=== PATIENT | male | born 1985 | race Caucasian/White ===

== ENCOUNTER 2020-07-08 08:31 | Outpatient (REF) | payer BC, SELFPAY | END 2020-07-08 08:32 | disposition home or self-care (01) | LOC: HO.LAB 08:31 | PROVIDERS: Visit Provider Internal Medicine | DX: Z20.828 Contact with and (suspected) exposure to other viral communicable diseases (principal) | CPT/HCPCS: C9803; U0003 ==

== ENCOUNTER 2020-09-20 18:11 | Emergency (ER) | payer BC, SELFPAY ==
[2020-09-20 19:29] VITALS: BP 171/106; PULSE 97; RESP 16; TEMP 36; O2SAT 98; BMI 34.2
[2020-09-20 21:01] VITALS: BP 152/87
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
[2020-09-20 22:39] VITALS: BP 149/68; PULSE 97; RESP 16; TEMP 36.6
== END 2020-09-20 23:08 | disposition home or self-care (01) ==
PROVIDERS: Emergency Provider Emergency Medicine
DX: S13.4XXA Sprain of ligaments of cervical spine, initial encounter (principal); M25.512 Pain in left shoulder; M54.2 Cervicalgia; R07.89 Other chest pain; V43.52XA Car driver injured in collision with other type car in traffic accident, initial encounter; Y93.9 Activity, unspecified; Y92.410 Unspecified street and highway as the place of occurrence of the external cause; Y99.9 Unspecified external cause status; Z79.899 Other long term (current) drug therapy
CPT/HCPCS: 71046; 72040; 73030; 99283; 99284

== ENCOUNTER 2024-09-15 06:50 | Day surgery (SDC) | payer BC, SELFPAY ==
[2024-09-15] VITALS (10 sets, daily range): BP systolic 139–209; BP diastolic 69–129; PULSE 64–111; RESP 13–18; TEMP 36.1–36.7; O2SAT 94–98; BMI 40.7
--- NOTE | 2024-09-15 10:31 | ED_ITS ---
HPI - Male Genitourinary General Chief complaint: Urogenital-Male Stated complaint: uro gen male, bleeding from private area, skin rip Time Seen by Provider: 09/15/24 10:31 Source: patient and RN notes reviewed Mode of arrival: ambulatory Limitations: no limitations History of Present Illness ED Provider: Lorna Ulloa PA-C [facility] Narrative: This is a 39-year-old male, with no reported medical problems, who presents to the emergency department who presents emergency department with concerns for foreskin tear. Patient states that he started using a new sex toy with new lubrication, which caused irritation to his foreskin he states that while he was retracting his foreskin this morning for cleansing, he felt his foreskin rip. No hx of similar symptoms. Radiation: penis Relieving factors: none Exacerbating factors: none Associated symptoms: Reports denies other symptoms Related Data Sexually active: No Previous Rx's ?Medication ?Instructions ?Recorded cyclobenzaprine 10 mg tablet 10 mg PO TID PRN muscle spasm #14 09/20/20 tabs ibuprofen 600 mg tablet 600 mg PO TID PRN pain #30 tabs 09/20/20 metformin 500 mg tablet 500 mg PO DAILY 30 days #30 tabs 09/15/24 oxycodone 5 mg tablet 5 mg PO Q8H PRN pain 3 days #8 tabs 09/15/24 sulfamethoxazole 400 1 tab PO DAILY #10 tabs 09/15/24 mg-trimethoprim 80 mg tablet (Bactrim) Allergies Allergy/AdvReac Type Severity Reaction Status Date / Time No Known Allergies Allergy Verified 09/15/24 06:54 Review of Systems 2 Review of Systems: Yes all other systems are reviewed and are negative Constitutional: Constitutional: Reports as per [facility] Social History Social History Smoked in Last 30 Days: No Use of substances other than those prescribed or required for medical reasons: No Advance Directives: No Advance Directives Information Provided: Yes Do you have a plan to hurt others: No Plan Physical Exam 2 Vital Signs: Vital Signs: Last Vital Signs Temp 97.5 F 09/15/24 20:32 Pulse 77 09/15/24 20:43 Resp 16 09/15/24 20:43 BP 139/79 09/15/24 20:43 Pulse Ox 94 09/15/24 20:43 O2 Del Method Room Air 09/15/24 20:43 O2 Flow Rate 3 09/15/24 20:22 BMI result Body Mass Index 40.7 Const: General: cooperative, comfortable and no acute distress O rientation/consciousness: patient oriented x3 Limitations: no limitations HEENT: Head: Yes normal to inspection, Yes normocephalic and Yes atraumatic Ears: hearing grossly normal bilaterally General nose exam: Normal external nose present Face and sinus: Yes normal facial exam Mouth: Normal oral and palatal mucosa present, oropharynx normal and moist mucous membranes Throat: Yes posterior oropharynx normal Eyes: General: appearance normal, both eyes and all related structures E yelids: Yes eyelids normal Conjunctivae: conjunctivae normal Sclerae: s clerae normal Pupils: Equal, round and reactive pupils present EOM: EOMs intact bilaterally Neck: Neck: Yes normal visual inspection, Yes full ROM and Yes no lymphadenopathy Lymphatic: no lymphadenopathy noted Chest: Chest palpation & inspection: normal inspection of the chest Resp: Effort & Inspection: normal respiratory effort and able to speak in complete sentences Auscultation: clear to auscultation bilaterally, no crackles, no rales, no rhonchi and no wheezes Cardio: Rate: regular rate Rhythm: regular rhythm Heart sounds: S1 normal heart sound present and S2 normal heart sound present GI: Inspection: Yes normal to inspection : Other: Uncircumcised male, with a large approximately 2.5 cm laceration noted to foreskin, left laterodorsal aspect extending just inferior to the glans. Controlled bleeding. Skin: General skin exam: no rashes or lesions noted Trauma: no lacerations or abrasions Wounds: no wounds Neuro: General: patient oriented x3 and moves all extremities Cranial nerves: Yes Equal, round and reactive pupils present Extrem: General: Yes normal to inspection Right upper extremity: normal to inspection Left upper extremity: normal to inspection Right lower extremity: normal to inspection Left lower extremity: normal to inspection Course Reevaluation(s) Reevaluation #1: Dr. Fenton saw patient at bedside. Recommending circumcision, will add to surgical schedule for this afternoon. Will obtain basic labs, will medicate with 1 time dose of Rocephin. Time: 13:16 Reevaluation #2: Pt's labs reveal patient has elevated glucose at 260. He mentions that he was seen at an urgent care 2 days ago and was told that he likely has diabetes. No known hx. Pt will start on metformin 500mg QD. Discussed to f/u with endocrinology. He understands. awaiting OR for emergent circumsision. Time: 14:28 Medications Administered Discontinued Medications Generic Name Dose Route Start Last Admin Trade Name Mindy PRN Reason Stop Dose Admin Ceftriaxone Sodium 2 gm 09/15/24 13:10 09/15/24 13:41 Ceftriaxone Sodium 2 Gm Vial IVPUSH 09/15/24 13:11 2 gm ONCE ONE Administration Lactated Ringer's 1,000 mls @ 100 mls/hr 09/15/24 13:15 09/15/24 13:41 Lr IVCONT 100 mls/hr .Q10H FARIHA Administration Medical Decision Making Medical Decision Making [facility] Narrative: This is a 39-year-old male who presents emergency department with concerns for torn foreskin. On arrival, blood pressure 200/105, pulse 111. Patient reports that he has been using a new toy, and lubrication, and felt his foreskin tear. Patient has large 2-1/2-3 cm partial-thickness laceration noted to his foreskin that needs surgical repair. I had my attending physician, Dr. Villafana, see patient, recommending Urology intervention. Consulted Dr. Fenton awaiting his input. Differential Diagnosis Differential Diagnoses: The differential diagnosis associated with the presentation includes Laceration, abrasion, foreign body Consult Healthcare Provider Management of the patient was discussed with: [employer] Farmer Dr fenton Lab Data [facility] Lab Attestation statement: I reviewed the patient's lab results. No WBC, stable H&H, no evidence of DKA or HHS. No evidencec of FUAD. glucose 282 on POC > new diagnosis of diabetes. Pt is not acidotic. Negative betahydrooxybuterate. 09/15/24 13:34 09/15/24 13:34 Labs: Lab Results 09/15/24 09/15/24 09/15/24 Range/Units 13:25 13:31 13:34 WBC 6.9 (4.8-10.8) X10*3/uL RBC 5.49 (4.60-5.80) X10*6/uL Hgb 16.2 (14.0-18.0) g/dl Hct 47.9 (42.0-52.0) % MCV 87.2 (80.0-98.0) fL MCH 29.5 (27.0-33.0) pg MCHC 33.8 (31.0-36.0) g/dl RDW 13.0 (11.0-16.0) % Plt Count 250 (160-400) X10*3/uL MPV 8.8 L (9.4-12.4) fL Immature Gran % (Auto) 0.3 (0.0-0.4) % Neut % (Auto) 57.7 (45-73) % Lymph % (Auto) 30.2 (20-40) % [place] % (Auto) 10.2 (2-11) % Eos % (Auto) 1.3 (0-4) % Baso % (Auto) 0.3 (0-2) % Lymph # (Auto) 2.1 (1.2-4.9) X10*3/uL [place] # (Auto) 0.7 (0.1-1.2) X10*3/uL Eos # (Auto) 0.1 (0.0-0.4) X10*3/uL Baso # (Auto) 0.0 (0.0-0.2) X10*3/uL Abs Immat Gran (auto) 0.02 (0.00-0.03) X10*3/uL Absolute Neuts (auto) 4.0 (2.0-8.3) x10*3/uL Absolute Nucleated RBC 0.000 (0.0-0.012) X10*3/uL Nucleated RBC % (auto) 0.0 (0.0-0.2) /100WBC Hold Purple Top SEE NOTE PT 12.5 H (10.9-12.4) SEC INR 1.1 (0.9-1.1) APTT 35.2 (26.0-36.8) SEC VBG pH (7.32-7.43) VBG pCO2 mmHg VBG pO2 mmHg VBG HCO3 (22-26) mmol/L VBG O2 Saturation % VBG Base Excess mmol/L Sodium 138 (135-145) mmol/L Potassium 3.8 (3.3-5.1) mmol/L Chloride 102 (96-108) mmol/L Carbon Dioxide 29 (22-29) mmol/L Anion Gap 11 L (12-20) BUN 8 L (9-16) mg/dL Creatinine 0.95 (0.5-1.4) mg/dL Estim Creat Clear Calc 143.5 Estimated GFR > 60 POC Glucose 260 H (60-115) mg/dL Random Glucose 282 H (60-115) mg/dL Calcium 9.7 (8.4-10.2) mg/dL Total Bilirubin 0.7 (0.0-1.0) mg/dL Direct Bilirubin 0.2 (0.0-0.5) mg/dL AST 70 H (5-37) U/L ALT 146 H (0-40) U/L Alkaline Phosphatase 99 (39-117) U/L Total Protein 7.8 (6.5-8.0) g/dL Albumin 4.2 (3.5-5.0) g/dL Beta-Hydroxybutyrate 0.10 (0.02-0.27) mmol/L Blood Type O Positive Antibody Screen NEGATIVE 09/15/24 09/15/24 Range/Units 13:35 19:01 WBC (4.8-10.8) X10*3/uL RBC (4.60-5.80) X10*6/uL Hgb (14.0-18.0) g/dl Hct (42.0-52.0) % MCV (80.0-98.0) fL MCH (27.0-33.0) pg MCHC (31.0-36.0) g/dl RDW (11.0-16.0) % Plt Count (160-400) X10*3/uL MPV (9.4-12.4) fL Immature Gran % (Auto) (0.0-0.4) % Neut % (Auto) (45-73) % Lymph % (Auto) (20-40) % [place] % (Auto) (2-11) % Eos % (Auto) (0-4) % Baso % (Auto) (0-2) % Lymph # (Auto) (1.2-4.9) X10*3/uL [place] # (Auto) (0.1-1.2) X10*3/uL Eos # (Auto) (0.0-0.4) X10*3/uL Baso # (Auto) (0.0-0.2) X10*3/uL Abs Immat Gran (auto) (0.00-0.03) X10*3/uL Absolute Neuts (auto) (2.0-8.3) x10*3/uL Absolute Nucleated RBC (0.0-0.012) X10*3/uL Nucleated RBC % (auto) (0.0-0.2) /100WBC Hold Purple Top PT (10.9-12.4) SEC INR (0.9-1.1) APTT (26.0-36.8) SEC VBG pH 7.39 (7.32-7.43) VBG pCO2 52 mmHg VBG pO2 25 mmHg VBG HCO3 32 H (22-26) mmol/L VBG O2 Saturation 45.0 % VBG Base Excess 5.6 mmol/L Sodium (135-145) mmol/L Potassium (3.3-5.1) mmol/L Chloride (96-108) mmol/L Carbon Dioxide (22-29) mmol/L Anion Gap (12-20) BUN (9-16) mg/dL Creatinine (0.5-1.4) mg/dL Estim Creat Clear Calc Estimated GFR POC Glucose 173 H (60-115) mg/dL Random Glucose (60-115) mg/dL Calcium (8.4-10.2) mg/dL Total Bilirubin (0.0-1.0) mg/dL Direct Bilirubin (0.0-0.5) mg/dL AST (5-37) U/L ALT (0-40) U/L Alkaline Phosphatase (39-117) U/L Total Protein (6.5-8.0) g/dL Albumin (3.5-5.0) g/dL Beta-Hydroxybutyrate (0.02-0.27) mmol/L Blood Type Antibody Screen Discharge Plan Discharge Clinical Impression: Laceration of penis, Diabetes mellitus, new onset Patient Disposition: Still a Patient Discharge Date/Time: 09/16/24 05:08
[2024-09-15 13:28] LABS: Glucose, Whole Blood 260 mg/dL (60-115)
[2024-09-15 13:39] LABS: Venous Blood Gas Refer to POC result
[2024-09-15 13:40] LABS: VBG Base Excess 5.6 mmol/L; VBG HCO3 32 mmol/L (22-26); VBG pCO2 52 mmHg; VBG pH 7.39 (7.32-7.43); VBG pO2 25 mmHg
[2024-09-15 13:41] LABS: MANUAL DIFF FLAG NO
[2024-09-15] MEDS: Lactated Ringers 1,000 ML 100 ML IVCONT (13:41)
[2024-09-15] MEDS: cefTRIAXone sodium 2 GM VIAL IVPUSH (13:41)
[2024-09-15 13:43] LABS: Basophils Percent Auto 0.3 % (0-2); Eosinophils Absolute Auto 0.1 X10*3/uL (0.0-0.4); Eosinophils Percent Auto 1.3 % (0-4); Hematocrit 47.9 % (42.0-52.0); Hemoglobin 16.2 g/dl (14.0-18.0); Imm Gran Abs Auto 0.02 X10*3/uL (0.00-0.03); Imm Gran Pct Auto 0.3 % (0.0-0.4); Lymphocytes Absolute Auto 2.1 X10*3/uL (1.2-4.9); Lymphocytes Percent Auto 30.2 % (20-40); Mean Corpuscular HGB Conc 33.8 g/dl (31.0-36.0); Mean Corpuscular Hemoglobin 29.5 pg (27.0-33.0); Mean Corpuscular Volume 87.2 fL (80.0-98.0); Mean Platelet Volume 8.8 fL (9.4-12.4); Monocytes Absolute Auto 0.7 X10*3/uL (0.1-1.2); Monocytes Percent Auto 10.2 % (2-11); Neutrophils Percent Auto 57.7 % (45-73); Platelet Count 250 X10*3/uL (160-400); Red Blood Count 5.49 X10*6/uL (4.60-5.80); White Blood Count 6.9 X10*3/uL (4.8-10.8)
[2024-09-15 13:50] LABS: INTERNATIONAL NORM RATIO 1.1 (0.9-1.1); Prothrombin Time 12.5 SEC (10.9-12.4)
[2024-09-15 13:52] LABS: Partial Thromboplastin Time 35.2 SEC (26.0-36.8)
[2024-09-15 14:00] LABS: Alanine Aminotransferase 146 U/L (0-40); Albumin Level 4.2 g/dL (3.5-5.0); Alkaline Phosphatase 99 U/L (39-117); Anion Gap 11 (12-20); Aspartate Amino Transferase 70 U/L (5-37); Bilirubin Direct 0.2 mg/dL (0.0-0.5); Bilirubin Total 0.7 mg/dL (0.0-1.0); Blood Urea Nitrogen 8 mg/dL (9-16); Calcium 9.7 mg/dL (8.4-10.2); Carbon Dioxide 29 mmol/L (22-29); Chloride 102 mmol/L (96-108); Creatinine Clr Calc Pharmacy 143.5; Estimated Glomerular Filt Rate > 60; Glucose Random 282 mg/dL (60-115); Potassium 3.8 mmol/L (3.3-5.1); Sodium 138 mmol/L (135-145); Total Protein 7.8 g/dL (6.5-8.0)
--- NOTE | 2024-09-15 14:00 | P.CNUR_ITS ---
History of Present Illness Consult details Consult date: 09/15/24 Narrative: CC: Penile laceration 39-year-old male Untreated diabetic Presents to emergency department with penile foreskin laceration Patient states he had started using a new sex toy with lubrication Prior irritation with foreskin and foreskin cracking On examination has complete separation of foreskin Recommend circumcision Will be organized Review of Systems 2 Constitutional: Constitutional: Denies chills and Denies fever(s) Cardiovascular: Cardiovascular: Reports no additional cardiovascular complaints and Denies syncope Respiratory: Respiratory: Denies cough Gastrointestinal: Gastrointestinal: Denies abdominal pain and Denies heartburn Genitourinary: Genitourinary: Reports as per HPI and Denies change in libido Neurologic: Denies syncope Psychiatric: Psychiatric: Denies change in libido Endocrine: Endocrine: Denies change in libido [facility] Social History Social History Advance Directives: No Advance Directives Information Provided: Yes Do you have a plan to hurt others: No Plan Meds Allergies Allergy/AdvReac Type Severity Reaction Status Date / Time No Known Allergies Allergy Verified 09/15/24 06:54 Active Medications: Current Medications Lactated Ringer's (Lr) 1,000 mls @ 100 mls/hr IVCONT .Q10H FARIHA Last Admin: 09/15/24 13:41 Dose: 100 mls/hr Physical Exam 2 Vital Signs: Vital Signs: Last Vital Signs Temp 97.8 F 09/15/24 12:13 Pulse 82 09/15/24 12:13 Resp 16 09/15/24 12:13 BP 187/104 H 09/15/24 12:13 Pulse Ox 98 09/15/24 12:13 O2 Del Method Room Air 09/15/24 12:13 BMI result Body Mass Index 40.7 Const: General: cooperative, healthy appearing, comfortable and no acute distress Orientation/consciousness: patient oriented x3 HEENT: Face and sinus: Yes normal facial exam Mouth: moist mucous membranes Neck: Neck: Yes normal visual inspection, Yes full ROM and Yes trachea midline Chest: Chest palpation & inspection: normal inspection of the chest Resp: Effort & Inspection: normal respiratory effort, able to speak in complete sentences and no respiratory distress GI: Inspection: Yes normal to inspection Back/Spine/Pelvis: Cervical Spine: normal cervical lordosis Thoracic/Lumbar Spine: thoracic and lumbar spine normal to inspection Skin: General skin exam: no rashes or lesions noted Neuro: General: patient oriented x3, gait normal, tone normal and moves all extremities Extrem: General: Yes normal to inspection and Yes capillary refill normal Results Labs 09/15/24 13:34 09/15/24 13:34 Labs: Abnormal lab results 09/15/24 09/15/24 09/15/24 Range/Units 13: 13:34 13:35 MPV 8.8 L (9.4-12.4) fL PT 12.5 H (10.9-12.4) SEC VBG HCO3 32 H (22-26) mmol/L POC Glucose 260 H (60-115) mg/dL Short CBC 09/15/24 Range/Units 13:34 WBC 6.9 (4.8-10.8) X10*3/uL Hgb 16.2 (14.0-18.0) g/dl Hct 47.9 (42.0-52.0) % Plt Count 250 (160-400) X10*3/uL All other labs normal. Assessment and Plan (1) Laceration of penis: Status: Acute Plan Risks, benefits and alternatives to therapy were discussed. These include but are not limited to infection, bleeding, damage to local organs and tissues, need for further interventions. Anesthetic risks regarding cardiac arrhythmia, blood clots, and potential mortality were discussed. The patient understands the typical recovery time and the outpatient nature of the procedure. After consideration of these risks the patient gives full informed consent and they wish to move ahead with the procedure. Plan circumcision Procedures Date of Service Date of Service: 09/15/24
--- NOTE | 2024-09-15 18:32 | PC.NURSE ---
report given to CAITY Akers in PACU- pt transported by procedure tech
--- NOTE | 2024-09-15 18:50 | P.CONAN_ITS ---
HPI - Anesthesia Eval Consult details Narrative: Penile laceration for circumcission PMFSH Active Problems Active Problems: All Active Problems Diabetes mellitus, new onset (Acute) Laceration of penis (Acute) Family History Family history of problems with anesthesia: No Surgical History History of Problems with Anesthesia: No Social History Social History Smoked in Last 30 Days: No Use of substances other than those prescribed or required for medical reasons: No Advance Directives: No Advance Directives Information Provided: Yes Do you have a plan to hurt others: No Plan Meds Allergies Allergy/AdvReac Type Severity Reaction Status Date / Time No Known Allergies Allergy Verified 09/15/24 06:54 Active Medications: Current Medications Lactated Ringer's (Lr) 1,000 mls @ 100 mls/hr IVCONT .Q10H FARIHA Last Admin: 09/15/24 13:41 Dose: 100 mls/hr Exam Height,Weight and Vital Signs: Height 5 ft 11 in Weight 132.449 kg Last Vital Signs Temp 97.9 F 09/15/24 18:21 Pulse 86 09/15/24 18:21 Resp 16 09/15/24 18:21 BP 196/97 H 09/15/24 18:21 Pulse Ox 98 09/15/24 18:21 O2 Del Method Room Air 09/15/24 18:21 Pertinent Lab Results Pertinent Lab Results: Laboratory Tests 09/15/24 09/15/24 09/15/24 13:25 13:31 13:34 WBC 6.9 RBC 5.49 Hgb 16.2 Hct 47.9 MCV 87.2 MCH 29.5 MCHC 33.8 RDW 13.0 Plt Count 250 MPV 8.8 L Immature Gran % (Auto) 0.3 Neut % (Auto) 57.7 Lymph % (Auto) 30.2 [place] % (Auto) 10.2 Eos % (Auto) 1.3 Baso % (Auto) 0.3 Lymph # (Auto) 2.1 [place] # (Auto) 0.7 Eos # (Auto) 0.1 Baso # (Auto) 0.0 Abs Immat Gran (auto) 0.02 Absolute Neuts (auto) 4.0 Absolute Nucleated RBC 0.000 Nucleated RBC % (auto) 0.0 Hold Purple Top SEE NOTE PT 12.5 H INR 1.1 APTT 35.2 VBG pH VBG pCO2 VBG pO2 VBG HCO3 VBG O2 Saturation VBG Base Excess Sodium 138 Potassium 3.8 Chloride 102 Carbon Dioxide 29 Anion Gap 11 L BUN 8 L Creatinine 0.95 Estim Creat Clear Calc 143.5 Estimated GFR > 60 POC Glucose 260 H Random Glucose 282 H Calcium 9.7 Total Bilirubin 0.7 Direct Bilirubin 0.2 AST 70 H ALT 146 H Alkaline Phosphatase 99 Total Protein 7.8 Albumin 4.2 Beta-Hydroxybutyrate 0.10 Blood Type O Positive Antibody Screen NEGATIVE 09/15/24 13:35 WBC RBC Hgb Hct MCV MCH MCHC RDW Plt Count MPV Immature Gran % (Auto) Neut % (Auto) Lymph % (Auto) [place] % (Auto) Eos % (Auto) Baso % (Auto) Lymph # (Auto) [place] # (Auto) Eos # (Auto) Baso # (Auto) Abs Immat Gran (auto) Absolute Neuts (auto) Absolute Nucleated RBC Nucleated RBC % (auto) Hold Purple Top PT INR APTT VBG pH 7.39 VBG pCO2 52 VBG pO2 25 VBG HCO3 32 H VBG O2 Saturation 45.0 VBG Base Excess 5.6 Sodium Potassium Chloride Carbon Dioxide Anion Gap BUN Creatinine Estim Creat Clear Calc Estimated GFR POC Glucose Random Glucose Calcium Total Bilirubin Direct Bilirubin AST ALT Alkaline Phosphatase Total Protein Albumin Beta-Hydroxybutyrate Blood Type Antibody Screen Airway Mallampati Class: II TM Dist: >3cm Neck ROM: Full Loose/Missing/Broken Teeth: No Heart: RRR Lungs: CTA Assessment and Plan Assessment Anesthesia Assessment: Anesthesia Plan Discussed and Chart Reviewed Final Anesthetic Review Family History of Problems with Anesthesia: No History of Problems with Anesthesia: No NPO: Yes ASA Class: III Final Preanesthetic Review: No Changes in Pt Med Stat, Meds/Allgs Chart Reviewed, Consent Obtained/Reviewed and Anes Risks/Benef Reviewed Patient Risk: Intermediate Procedure Risk: Low Anesthetic Plan Anesthetic Plan: GA Disposition: Standard PACU
[2024-09-15 19:05] LABS: Glucose, Whole Blood 173 mg/dL (60-115)
--- NOTE | 2024-09-15 19:20 | MHC.SHP ---
Pre-Procedural Eval Section A - 24 Hr Update-Section A only Date of Service: 09/15/24 The patient is an INPATIENT: Yes Changes since office visit: No Cold of Flu in the past 2 weeks, No New Medical Problems, No Changes in Medication and No Patient answered all questions The patient has been examined within 24 hours of the surgical procedure. The History & Physical has been completed within 30 days and I have reviewed it.: Yes Section B - Complete if H&P > 30 days Chief Complaint: uro gen male, bleeding from private area, skin rip Allergies: Allergies Allergy/AdvReac Type Severity Reaction Status Date / Time No Known Allergies Allergy Verified 09/15/24 06:54 Plan I have reviewed the history and physical and performed a pertinent physical examination on my patient. No changes have occurred unless specified. Time Spent With Patient Time: Total time managing care of this patient today ____ minutes.
--- NOTE | 2024-09-15 20:13 | P.OP_ITS ---
Operative Note Operative Note Date of Service: 09/15/24 Narrative: PreOperative Diagnosis: Foreskin laceration Post Operative Diagnosis: Foreskin laceration Procedure: Circumcision with frenular release Surgeon: Dr Neptali Renteria Anesthesia: General Indications for procedure: Laceration to foreskin occurred secondary to use of masturbation toy Procedure: After informed consent was verified the patient was brought to the operating room and placed in a supine position. Anesthesia was administered per protocol. The patient was prepped and draped sterile fashion. Safety pause time-out was performed. Antibiotics have been given. The penis was examined. Laceration on dorsal surface of foreskin which approximated a dorsal slit. Proximal incision marked that lay just proximal to the resting position of the penile sulcus. This was followed around the circumference of the penis. A penile ring block was performed using 1% lidocaine with no epinephrine. Approximately 8 cc. Frenular attachment. Frenular attachment was clamped with a small mosquito. Divided with a sharp scissor. Interrupted 4-0 chromic sutures were placed in or zcak to close in a Heineke-Mikulicz fashion. The proximal incision was developed with sharp blade running circumferentially around the penis. The skin was to give a 1 cm separation between the foreskin in the remaining penile shaft skin. The foreskin was withdrawn and the penile glans exposed. A a distal incision was made approximately 5 mm proximal to the penile sulcus. At the area of the frenulum care was taken to empty the penile frenulum intact. Using clamps the dorsal skin was elevated. Using Metzenbaum scissors the avascular plane was entered and proximal and distal incision were joined. The bridging skin was elevated and clamped. It was then divided using Bovie. The sleeve of tissue was then removed circumferentially around the penis using cautery in order to minimize bleeding. The shaft was then examined in any bleeding areas were controlled. More local anesthetic was injected into the plane beneath avascular plane to help with postprocedure pain management. The skin edges after they were appropriately examined low reapposed. A 3-0 chromic suture was placed at 12:00 o'clock and 06:00 o'clock positions. Interrupted 3-0 was then placed the 09:00 o'clock and 3 o'clock position. Each quadrant was then filled with 3 sutures using 4-0 chromic. At the completion of the procedure there was adequate hemostasis. The incision was washed and dried. Antibiotic cream was applied to the incision. A Yoni wrap was applied followed by a Coban dressing. Xeroform gauze had been used to cover antibiotic ointment. He tolerated the procedure well and was extubated in the room and transferred in stable condition to the recovery area. Pathology: Foreskin Drains: none
== END 2024-09-15 20:43 | disposition home or self-care (01) ==
LOC: HO.ED 13:33 → HO.SSS 14:41
PROVIDERS: Physician Assistant Medical; Emergency Provider Emergency Medicine; Visit Provider Urology
PROC: (CPT 54150; principal; 2024-09-15 20:10)
DX: S31.21XA Laceration without foreign body of penis, initial encounter (principal); W44.B3XA Plastic toy and toy part entering into or through a natural orifice, initial encounter; E11.9 Type 2 diabetes mellitus without complications; R79.1 Abnormal coagulation profile; Y93.89 Activity, other specified; Y92.009 Unspecified place in unspecified non-institutional (private) residence as the place of occurrence of the external cause; Y99.9 Unspecified external cause status
CPT/HCPCS: 54150; 36415; 80048; 80076; 82010; 82803; 82947; 85025; 85610; 85730; 86850; 86900; 86901; 88304; 96374; 99284; 99285; J0696; J1920; J2003; J2704; J2795; J3010; J7120

== ENCOUNTER → 2024-09-15 10:33 | Outpatient (BNV) | payer BC, SELFPAY | PROVIDERS: Emergency Provider Emergency Medicine; Visit Provider Urology | DX: S31.21XA Laceration without foreign body of penis, initial encounter (principal) | CPT/HCPCS: 54161; 99284 ==

== ENCOUNTER 2024-10-12 12:56 | Outpatient (AMB) | payer BC, SELFPAY ==
--- NOTE | 2024-10-12 13:23 | A.OFFVIS_ITS ---
Intake Visit Reasons: ER Follow up- Circumcision Intake Note: Patient presents today for ER follow up on circumcision Urology Medications: none Blood Thinner: none Associate Sales Required: No Accompanied by: Self / Same As Patient Allergies No Known Allergies Allergy (Verified 10/12/24 14:12) HPI Comments Details: Jed is a pleasant male. 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 New diagnosis diabetic Circumcision had been performed Healing well although appears to have some difficulty with full retraction Six-month follow-up 90 day prescription for metformin provided to allow him time to obtain new primary care Review of Systems Const Denies chills and Denies fever(s) Card Reports no additional complaints and Denies syncope Resp Denies cough GI Denies abdominal pain and Denies heartburn Reports as per HPI and Denies change in libido Neuro Denies syncope Psych Denies change in libido Endo Denies change in libido Physical Exam Const General: cooperative, healthy appearing, comfortable and no acute distress Orientation/consciousness: patient oriented x3 HEENT Face and sinus: Yes normal facial exam Mouth: moist mucous membranes Neck Neck: Yes normal visual inspection, Yes full ROM and Yes trachea midline Chest Chest palpation & inspection: normal inspection of the chest Resp Effort & Inspection: normal respiratory effort, able to speak in complete sentences and no respiratory distress GI Inspection: Yes normal to inspection Back/Spine/Pelvis Cervical Spine: normal cervical lordosis Thoracic/Lumbar Spine: thoracic and lumbar spine normal to inspection Skin General skin exam: no rashes or lesions noted Neuro General: patient oriented x3, gait normal, tone normal and moves all extremities Extrem General: Yes normal to inspection and Yes capillary refill normal Assessment & Plan Assessment & Plan (1) Phimosis of penis: Code(s): N47.1 - Phimosis Category: Medical (2) Diabetes mellitus, new onset: Code(s): E11.9 - Type 2 diabetes mellitus without complications Category: Medical Plan Six-month follow-up Medications: Discontinued oxycodone Partial Fill upon patient request. Discontinued Reason: Patient no longer taking 5 mg PO Q8H 3 days PRN 8 tabs 0RF pain sulfamethoxazole-trimethoprim 400-80 mg (Bactrim) Discontinued Reason: Patient no longer taking 1 tab PO DAILY 10 tabs 0RF Patient Instructions: This note is constructed using voice recognition software. While every effort has been made to ensure accuracy filemaker developer errors may have been included. Imaging studies, laboratory and physical exam results were discussed and reviewed in detail. No major barriers to patient understanding were identified. An opportunity to ask questions regarding the treatment plan was provided. All questions were answered. The patient expressed understanding and agreement with the above treatment plan. The patient is aware they should contact our office by phone for worsening of their current condition or the appearance of new urologic symptoms. Compliance is encouraged with any medications and followup testing that is ordered. It is a privilege to participate in the urologic care of your patient. If you have any questions or concerns regarding treatment for the above conditions, or other urologic issues, please do not hesitate to contact me. The office telephone contact is [phone]. Sincerely, Dr Neptali Renteria MD, [facility] - Urology Compassionate Specialist Care for the Genitourinary System Coding Level of Care Code Est Pt Level 3 (09508) Diagnoses Phimosis of penis N47.1 Diabetes mellitus, new onset E11.9
== END 2024-10-12 13:47 | disposition home or self-care (01) ==
PROVIDERS: Visit Provider Urology
DX: N47.1 Phimosis (principal); E11.9 Type 2 diabetes mellitus without complications
CPT/HCPCS: 99213

== ENCOUNTER → 2024-10-12 12:56 | Outpatient (BNVA) | payer BC, SELFPAY | PROVIDERS: Visit Provider Urology ==

== ENCOUNTER 2025-04-12 09:29 | Outpatient (AMB) | payer BC, SELFPAY ==
--- OUTSIDE RECORDS SUMMARY | 2025-04-09 23:59 | XMS_ITS | Continuity of Care Document ---
Author Organization [facility] As [facility] Address [address] [place] [address] [address] [place] [address]- Care Team Providers Care Reed Or Wind Instrument Tuner Name Role Phone Efraín Friedman DO Primary Care Physician [phone] Encounter [facility] Date(s): 03/10/25 - 04/09/[address] [place], [place] [address] Encounter Type: Triage Allergies, Adverse Reactions, Alerts No Known Allergies Medications acetaminophen 160 mg/5 mL oral suspension 15 mL = 480 mg, By Mouth, Every 6 hours, PRN Pain , Moderate, # 480 mL, 0 Refills, Acute 05/09/25 10:29:00 AM EDT, 03/31/25 10:28:00 AM EDT, Suspension, [id number], Partial fill upon patient request if the prescription is for a schedule II opioid drug., 180, cm, 03/31/25 9:54:00 EDT, Height, 132, kg, 03/03/25 7:42:00 EDT, Dry Weight Start Date: 03/31/25 Stop Date: 05/09/25 Status: Ordered Quantity: 480.0 Unit: mL Repeat number: 1 diclofenac 1% topical gel 2.25 inches, Topically, 4 times a day, use dosing card to measure a dose, # 150 Gm, 0 Refills, Maintenance, 03/10/25 11:42:00 PM EDT, Gel, [id number], Partial fill upon patient request if the prescription is for a schedule II opioid drug., 180, cm, 03/08/25 13:41:00 EDT, Height, 132, kg, 03/03/25 7:42:00 EDT, Dry Weight Start Date: 03/10/25 Status: Ordered Quantity: 150.0 Unit: g Repeat number: 1 diclofenac 1% topical gel 4.5 inches, Topically, 4 times a day, use dosing card to measure a dose, # 100 Gm, 5 Refills, Maintenance, 03/23/25 1:32:00 PM EDT, Gel, [id number], Partial fill upon patient request if the prescription is for a schedule II opioid drug., 180, cm, 03/23/25 13:07:00 EDT, Height, 132, kg, 03/03/25 7:42:00 EDT, Dry Weight Start Date: 03/23/25 Status: Ordered Quantity: 100.0 Unit: g Repeat number: 6 Indications: Other injury of unspecified body region, initial encounter; Fracture of one rib, unspecified side, initial encounter for closed fracture; Type 2 diabetes mellitus without complications; docusate sodium 100 mg oral capsule 1 capsule = 100 mg, By Mouth, 2 times a day, # 60 capsule, 0 Refills, Maintenance, 03/05/25 11:12:00AM EDT, Capsule, [facility], Partial fill upon patient request if the prescription isfor a schedule II opioid drug., 180, cm, 03/03/25 6:38:00 EDT, Height, 132, kg, 03/03/25 7:42:00 EDT, Dry Weight Start Date: 03/05/25 Status: Ordered Quantity: 60.0 Unit: capsule Repeat number: 1 gabapentin 250 mg/5 mL oral solution 6 mL = 300 mg, By Mouth, 3 times a day, # 540 mL, 0 Refills, Maintenance, 03/31/25 10:30:00 AM EDT, Solution, [id number], Partial fill upon patient request if the prescription is for a scheduleII opioid drug., 180, cm, 03/31/25 9:54:00 EDT, Height, 132, kg, 03/03/25 7:42:00 EDT, Dry Weight Start Date: 03/31/25 Stop Date: 06/20/25 Status: Ordered Quantity: 540.0 Unit: mL Repeat number: 1 gabapentin 250 mg/5 mL oral solution 6 mL = 300 mg, By Mouth, 3 times a day, # 540 mL, 0 Refills, Maintenance, 03/18/25 10:34:00 AM EDT, Solution, [id number], Partial fill upon patient request if the prescription is for a schedule II opioid drug., 180, cm, 03/17/25 9:09:00 EDT, Height, 132, kg, 03/03/25 7:42:00 EDT, Dry Weight Start Date: 03/18/25 Status: Ordered Quantity: 540.0 Unit: mL Repeat number: 1 gabapentin 300 mg oral capsule 300 mg, By Mouth, 3 times a day, # 21 capsule, Refills 0, Tot. Refills 0, Maintenance, 03/17/25 5:36:00 PM EDT, Route to Pharmacy Electronically, [id number], Partial fill upon patient request if the prescription is for a schedule II opioid drug., 180, cm, 03/17/25 9:09:00 EDT, Height, 132, kg, 03/03/25 7:42:00 EDT, Dry Weight Start Date: 03/17/25 Stop Date: 03/24/25 Status: Ordered Quantity: 21.0 Unit: capsule Repeat number: 1 lidocaine 5% topical film 1 patch, Topically, Daily, PRN Pain , Mild, remove after 12 hours, # 13 each, 0 Refills, Maintenance, 03/10/25 11:41:00 PM EDT, Film, [id number], Partial fill upon patient request if the prescription is for a schedule II opioid drug., 1 patch Topically Daily,PRN:Pain , Mild,Instr:remove after 12 hours, 180, cm, 03/08/25 13:41:00 EDT, Height, 132, kg, 03/03/25 7:42:00 EDT, Dry Weight Start Date: 03/10/25 Status: Ordered Quantity: 13.0 Unit: each Repeat number: 1 lisinopril 20 mg oral tablet 20 mg, 1, tablet, By Mouth, Daily, # 90 tablet, Refills 3, Tot. Refills 3, Maintenance, 02/09/25 9:19:00 AM EDT, Route to Pharmacy Electronically, [id number], Partial fill upon patient requestif the prescription is for a schedule II opioid drug., 178.5, cm, 02/09/25 9:18:00 EDT, Height Start Date: 02/09/25 Status: Ordered Quantity: 90.0 Unit: tablet Repeat number: 4 metFORMIN 500 mg oral tablet 1 tablet = 500 mg, By Mouth, Daily, # 90 tablet, 3 Refills, Maintenance, 12/20/24 11:23:00 AM EDT, Tablet, [id number], Partial fill upon patient request if the prescription is for a schedule II opioid drug., 178.5, cm, 12/20/24 10:44:00 EDT, Height Start Date: 12/20/24 Status: Ordered Quantity: 90.0 Unit: tablet Repeat number: 4 ocular lubricant preserved solution 2 drops, Eye, Left, Every 4 hours, PRN Other, Dryness., # 30 mL, 0 Refills, Maintenance, 03/05/25 11:12:00 AM EDT, Ophth Solution, [facility], Partial fill upon patient request if the prescription is for a schedule II opioid drug., 2 drops Eye, Left Every 4 hours,PRN:Other,Instr:Dryness., 180, cm, 03/03/25 6:38:00 EDT, Height, 132, kg, 03/03/25 7:42:00 EDT, Dry Weight Start Date: 03/05/25 Status: Ordered Quantity: 30.0 Unit: mL Repeat number: 1 Problem List Condition Confirmation Course Effective Dates Status Health St atus Informant Rib fracture Confirmed Active Hypertension Confirmed Active MARITA (obstructive sleep apnea) Confirmed Active Open wound Confirmed Active Healthcare maintenance Confirmed Active Severe obesity Confirmed Active Severe obesity Confirmed Active Type 2 diabetes mellitus Confirmed Active Social History Social History Type Response Smoking Status Never (less than 100 in lifetime) entered on: 12/20/24 Sex Sex Representation Male (finding) Patient Care team information Care Team Personnel Name: Lorna Leyva RN Position: S RN Member Role: Primary Care Nurse Name: Fannie Akhtar RN Position: S RN Member Role: Primary Care Nurse Name: Efraín Friedman DO Position: S Physician - Primary Care Member Role: PCP Address: [address] [place] [address] Telecom: Name: Monika Strickland RN Position: S RN Member Role: Primary Care Nurse Care Team Related Persons Name: LETA YUAN Name: JACOBSONSIRI LAU Insurance Providers Guarantor name: MONIQUE Health Plan Information #: 1 Payer: [employer] Payer Identifier: NA Member Number: [id number] Group Number: [id number] Subscriber Identifier: [id number] Relationship to Subscriber: self Coverage Type: Auto Insurance (includes no fault) Coverage Verification Date: Telecom: NA Address: Health Plan Information #: 2 Payer: BLUE CROSS PPO Payer Identifier: NA Member Number: [id number] Group Number: [id number] Subscriber Identifier: [id number] Relationship to Subscriber: self Coverage Type: NA Coverage Verification Date: Telecom: Address:
--- OUTSIDE RECORDS SUMMARY | 2025-04-10 23:59 | XMS_ITS | Continuity of Care Document ---
Author Organization [facility] Address [address] [place] [address]- Care Team Providers Care Production Engineer Track Name Role Phone Efraín Friedman DO Primary Care Physician Encounter [facility] Date(s): 03/11/25 - 04/10/25 [facility] [address] [place], [place] [address] Encounter Type: Triage Allergies, Adverse Reactions, [...] Refills, Maintenance, 03/23/25 1:32:00 PM EDT, Gel, [id number], Partial fill upon patient request [...] 0 Refills, Maintenance, 03/05/25 11:12:00AM EDT, Capsule, [facility], Partial fill upon patient request if [...] 5:36:00 PM EDT, Route to Pharmacy Electronically, [id number], Partial fill upon patient request [...] Refills, Maintenance, 03/10/25 11:41:00 PM EDT, Film, [id number], Partial fill upon patient request [...] Maintenance, 03/05/25 11:12:00 AM EDT, Ophth Solution, [facility], Partial fill upon patient request if [...] - Primary Care Member Role: PCP Address: [address] [place], [place] [address] Telecom: Name: Monika Strickland RN Position: S RN Member Role: Primary Care Nurse Care Team Related Persons Name: LETA YUAN Name: JACOBSONSIRI LAU Insurance Providers Guarantor name: MONIQUE Health Plan Information #: 1 Payer: [employer] Payer Identifier: NA Member Number: [id number] Group Number: [id number] Subscriber Identifier: [id number] Relationship to Subscriber: self Coverage Type: Auto Insurance (includes no fault) Coverage Verification Date: Telecom: Address: Health Plan Information #: 2 Payer: BLUE CROSS PPO Payer Identifier: MONIQUE Member Number: [id number] Group Number: [id number] Subscriber Identifier: [id number] Relationship to Subscriber: self Coverage Type: NA Coverage Verification Date: Telecom: Address:
--- NOTE | 2025-04-12 09:30 | A.OFFVIS_ITS ---
Intake Visit Reasons: 6m followup Intake Note: Patient presents today for 6 MO follow up Urology Medications: none Blood Thinner: none Capacity Planning Engineer Required: No Accompanied by: Self / Same As Patient Allergies No Known Allergies Allergy (Verified 04/12/25 09:31) HPI Comments Details: Jed is a pleasant male. He is seen for the following urologic conditions - traumatic phimosis Six-month follow-up postprocedure Well-healed Easily able to retract P.r.n. follow-up Traumatic phimosis Follow-up of traumatic phimosis Concurrent diabetic Circumcision had been performed 09/18 Had some difficulty with retraction in initial postop. Review of Systems Const Denies chills and Denies fever(s) Card Reports no additional complaints and Denies syncope Resp Denies cough GI Denies abdominal pain and Denies heartburn Reports as per HPI and Denies change in libido Neuro Denies syncope Psych Denies change in libido Endo Denies change in libido Physical Exam Const General: cooperative, healthy appearing, comfortable and no acute distress Orientation/consciousness: patient oriented x3 HEENT Face and sinus: Yes normal facial exam Mouth: moist mucous membranes Neck Neck: Yes normal visual inspection, Yes full ROM and Yes trachea midline Chest Chest palpation & inspection: normal inspection of the chest Resp Effort & Inspection: normal respiratory effort, able to speak in complete sentences and no respiratory distress GI Inspection: Yes normal to inspection Back/Spine/Pelvis Cervical Spine: normal cervical lordosis Thoracic/Lumbar Spine: thoracic and lumbar spine normal to inspection Skin General skin exam: no rashes or lesions noted Neuro General: patient oriented x3, gait normal, tone normal and moves all extremities Extrem General: Yes normal to inspection and Yes capillary refill normal Assessment & Plan Assessment & Plan (1) Phimosis of penis: Code(s): N47.1 - Phimosis Category: Medical Plan P.r.n. follow-up Patient Instructions: This note is constructed using voice recognition software. While every effort has been made to ensure accuracy munitions handler supervisor errors may have been included. Imaging studies, laboratory and physical exam results were discussed and reviewed in detail. No major barriers to patient understanding were identified. An opportunity to ask questions regarding the treatment plan was provided. All questions were answered. The patient expressed understanding and agreement with the above treatment plan. The patient is aware they should contact our office by phone for worsening of their current condition or the appearance of new urologic symptoms. Compliance is encouraged with any medications and followup testing that is ordered. It is a privilege to participate in the urologic care of your patient. If you have any questions or concerns regarding treatment for the above conditions, or other urologic issues, please do not hesitate to contact me. The office telephone contact is [phone]. Sincerely, Dr Neptali Renteria MD, [facility] - Urology Compassionate Specialist Care for the Genitourinary System Coding Level of Care Code Est Pt Level 3 (08176) Diagnoses Phimosis of penis N47.1
== END 2025-04-12 09:53 | disposition home or self-care (01) ==
LOC: HO.HUSH 09:30
PROVIDERS: Visit Provider Urology
DX: N47.1 Phimosis (principal)
CPT/HCPCS: 99213